=== PATIENT | female | born 1985 | race Caucasian/White ===

== ENCOUNTER 2017-05-15 15:22 | Emergency (ER) | payer SELFPAY ==
--- NOTE | 2017-05-15 17:02 | ER Document Report ---
HPI - HPI Patient complains to provider of: Sore throat, congestion, cough for 3 weeks. Pain Level: 2 Context: Patient is a 31-year-old female presents emergency department complaining of productive cough, congestion, for the past 3 weeks. She also states that her sore throat lasted for about 1 week. She denies any sick contacts. She denies any fevers, chills, body aches. States she did not get a flu vaccine this year. Recently lost her insurance and does not have a primary care provider to follow-up with Past Medical History - Social History Smoking Status: Never Smoker Family History: Reviewed & Not Pertinent Vertical Provider Document - CONSTITUTIONAL Agree With Documented VS: Yes Notes: PHYSICAL EXAM GENERAL: Alert, interacts well. HEENT: NCAT, pale conjunctiva, extraocular movements intact, pupils PERRL. external ear normal, no evidence of external auditory canal tenderness, blood/ drainage, cerumen impaction, TM intact without evidence of effusion, bulging, injection, MMM, Uvula midline. Mild pharyngeal erythema. Airway patent. No evidence of tonsillar enlargement, peritonsillar abscess, retropharyngeal abscess. LUNGS: Clear to auscultation bilaterally, no wheezes, rales, or rhonchi. No respiratory distress. HEART: Regular rate and rhythm. No murmurs, gallops, or rubs. ABDOMEN: Soft, nondistended, nontender. No guarding, rebound, or rigidity.. Bowel sounds present in all 4 quadrants. EXTREMITIES: Moves all 4 extremities spontaneously. No edema, radial and dorsalis pedis pulses 2/4 bilaterally. No cyanosis. NEUROLOGICAL: Alert and oriented x4. Normal speech. PSYCH: Normal affect, normal mood. SKIN: Warm, dry, normal turgor. No rashes or lesions noted. - INFECTION CONTROL TRAVEL OUTSIDE OF THE [place] IN LAST 30 DAYS: No - RESPIRATORY O2 Sat by Pulse Oximetry: 97 Course - Re-evaluation Re-evalutation: 05/15/17 18:26 Presentation is most consistent with a viral upper respiratory infection. Patient is overall well appearance, vitals within normal limits, well-hydrated. Patient denies any headache, neck pain, and has no evidence of meningismus on examination. Lungs are clear bilaterally. Chest x-ray clear without any evidence of acute infiltrate. No evidence of respiratory distress. Rapid strep is negative and does not meet Cent[facility] criteria for clinical antibiotic administration. Based on clinical exam and history, I do not suspect an acute pneumonia, meningitis, strep pharyngitis, or an acute encephalitis. No laboratory or imaging testing is indicated at this time. Will discharge patient with return precautions and followup recommendations. They are in agreement this plan have verbalized understanding return precautions. - Vital Signs Vital signs: Temp Pulse Resp BP Pulse Ox 98.8 F 67 16 107/64 97 05/15/17 15:26 05/15/17 15:26 05/15/17 15:26 05/15/17 15:26 05/15/17 15:26 Discharge - Discharge Clinical Impression: URI (upper respiratory infection) Qualifiers: URI type: unspecified viral URI Qualified Code(s): J06.9 - Acute upper respiratory infection, unspecified Condition: Good Disposition: HOME, SELF-CARE Additional Instructions: Your symptoms are most likely due to a viral infection it should resolve over the next 7-14 days. You should take yypz-byx-[id number] guanfacine per bottle instructions to help thin the mucus. For nasal congestion: I would recommend that you get emum-wfd-wygrtmq oxymetazoline also known is afrin. Use only per bottle instructions and be sure to never use this for more than 3 days if you can develop severe rebound congestion. You may also use tylenol or ibuprofen as needed for aches and thorat discomfort. Please be sure to drink plenty of fluids and get rest. Return to the emergency department he began having difficulty breathing, chest pain, persistent vomiting, or any other symptoms that are concerning to you. Referrals: [facility] [NO LOCAL MD] - Follow up as needed
--- NOTE | 2017-05-15 17:38 | RADIOLOGY REPORT (SQ) ---
EXAM DESCRIPTION: CHEST PA/LAT COMPLETED DATE/TIME: 05/15/2017 5:26 pm REASON FOR STUDY: cough COMPARISON: None. EXAM PARAMETERS: NUMBER OF VIEWS: two views TECHNIQUE: Digital Frontal and Lateral radiographic views of the chest acquired. RADIATION DOSE: NA LIMITATIONS: none FINDINGS: LUNGS AND PLEURA: No opacities, masses or pneumothorax. No pleural effusion. MEDIASTINUM AND HILAR STRUCTURES: No masses or contour abnormalities. HEART AND VASCULAR STRUCTURES: Heart normal size. No evidence for failure. BONES: No acute findings. HARDWARE: Bilateral breast implants. OTHER: No other significant finding. IMPRESSION: NO SIGNIFICANT RADIOGRAPHIC FINDING IN THE CHEST. TECHNICAL DOCUMENTATION: JOB ID: [id number] [employer]- All Rights Reserved
[2017-05-15] MEDS ORDERED: PSEUDOEPHEDRINE HCL 30 MG TABLET PO ONE (18:08)
[2017-05-15] MEDS ORDERED: BENZONATATE 100 MG CAPSULE PO ONE (18:08)
[2017-05-15 18:40] VITALS: BP 101/54
== END 2017-05-15 18:39 | disposition home or self-care (01) ==
LOC: ER 15:22
DX: J06.9 Acute upper respiratory infection, unspecified (principal)
CPT/HCPCS: 71046; 87070; 87077; 87880; 99283

== ENCOUNTER 2017-05-31 08:08 | Emergency (ER) | payer SELFPAY ==
[2017-05-31] MEDS ORDERED: MORPHINE SULFATE 10 MG/ML INJ IV ONE (09:48)
[2017-05-31] MEDS ORDERED: NORMAL SALINE 1000 ML 1,000 ML IV ONE ×2 (09:48→13:05)
--- NOTE | 2017-05-31 10:19 | ER Document Report ---
ED Medical Screen (RME) - General Chief Complaint: Abdominal Pain Stated Complaint: ABDOMINAL PAIN Time Seen by Provider: 05/31/17 09:47 Notes: Patient complains of right lower quadrant pain that radiates to her back. She denies any nausea being . She has had some nausea. No problems with stool. She has had some dysuria. TRAVEL OUTSIDE OF THE [place] IN LAST 30 DAYS: No - Related Data Allergies/Adverse Reactions: No Known Allergies Allergy (Verified 05/31/17 08:09) Past Medical History - Social History Chew tobacco use (# tins/day): No Frequency of alcohol use: Occasional Drug Abuse: None Renal/ Medical History: Denies: Hx Peritoneal Dialysis Past Surgical History: Reports: Hx Breast Surgery - augmentation, Hx Gynecologic Surgery - d/c Physical Exam - Vital signs Vitals: Temp Pulse Resp BP Pulse Ox 98.6 F 92 15 104/57 L 98 05/31/17 08:13 05/31/17 08:13 05/31/17 08:13 05/31/17 08:13 05/31/17 08:13 Course - Vital Signs Vital signs: Temp Pulse Resp BP Pulse Ox 98.6 F 92 15 104/57 L 98 05/31/17 08:13 05/31/17 08:13 05/31/17 08:13 05/31/17 08:13 05/31/17 08:13
[2017-05-31 10:42] LABS: ABSOLUTE BASOPHILS # (AUTO) 0.1 10^3/uL (0.0-0.2); ABSOLUTE EOSINOPHILS # (AUTO) 0.1 10^3/uL (0.0-0.6); ABSOLUTE LYMPHOCYTES (AUTO) 1.3 10^3/uL (0.5-4.7); ABSOLUTE NEUT (AUTO) 16.1 10^3/uL (1.7-8.2); BASOPHILS % (AUTO) 0.3 % (0-2); EOSINOPHILS % (AUTO) 0.4 % (0-6); HEMATOCRIT 42.8 % (36.0-47.0); HEMOGLOBIN 14.4 g/dL (12.0-15.5); LYMPHOCYTES % (AUTO) 6.9 % (13-45); MEAN CORPUSCULAR HEMOGLOBIN 29.7 pg (27.0-33.4); MEAN CORPUSCULAR HGB CONC 33.6 g/dL (32.0-36.0); MEAN CORPUSCULAR VOLUME 88 fl (80-97); MONOCYTES % (AUTO) 5.3 % (3-13); PLATELET COUNT 265 10^3/uL (150-450); RED BLOOD COUNT 4.85 10^6/uL (3.72-5.28); RED CELL DISTRIBUTION WIDTH 13.1 % (11.5-14.0); SEGMENTED NEUTROPHILS % (AUTO) 87.1 % (42-78); TOTAL CELLS COUNTED % (AUTO) 100 %; WHITE BLOOD COUNT 18.5 10^3/uL (4.0-10.5)
[2017-05-31 10:46] LABS: APPEARANCE,URINE SLIGHTLY-CLOUDY; BILIRUBIN,URINE NEGATIVE (NEGATIVE); COLOR,URINE YELLOW; GLUCOSE, URINE NEGATIVE (NEGATIVE); KETONES,URINE 20 mg/dL (NEGATIVE); LEUKOCYTE ESTERASE,URINE LARGE (NEGATIVE); NITRITE,URINE NEGATIVE (NEGATIVE); PROTEIN,URINE NEGATIVE (NEGATIVE); URINE SPECIFIC GRAVITY 1.024
[2017-05-31 11:02] LABS: ALANINE AMINOTRANSFERASE 104 U/L (9-52); ALBUMIN 4.7 g/dL (3.5-5.0); ALKALINE PHOSPHATASE 129 U/L (38-126); ANION GAP 10 (5-19); ASPARTATE AMINO TRANSFERASE 50 U/L (14-36); BILIRUBIN,DIRECT 0.2 mg/dL (0.0-0.4); BILIRUBIN,TOTAL 2.8 mg/dL (0.2-1.3); BLOOD UREA NITROGEN 11 mg/dL (7-20); CALCIUM 10.1 mg/dL (8.4-10.2); CARBON DIOXIDE 28 mmol/L (22-30); CHLORIDE 101 mmol/L (98-107); GLUCOSE 79 mg/dL (75-110); POTASSIUM 4.5 mmol/L (3.6-5.0); SODIUM 139.2 mmol/L (137-145); TOTAL PROTEIN 8.1 g/dL (6.3-8.2)
--- NOTE | 2017-05-31 14:04 | RADIOLOGY REPORT (SQ) ---
EXAM DESCRIPTION: CT ABD/PELVIS WITH IV ONLY COMPLETED DATE/TIME: 05/31/2017 1:38 pm REASON FOR STUDY: RLQ pain COMPARISON: None. TECHNIQUE: CT scan of the abdomen and pelvis performed using helical scanning technique with dynamic intravenous contrast injection. No oral contrast. Images reviewed with lung, soft tissue, and bone windows. Reconstructed coronal and sagittal MPR images reviewed. Delayed images for evaluation of the urinary system also acquired. All images stored on PACS. All CT scanners at this facility use dose modulation, iterative reconstruction, and/or weight based d osing when appropriate to reduce radiation dose to as low as reasonably achievable (ALARA). [facility]: Dose Right [facility]: CareDose [facility]: Dose Right [facility]: Teradose 4D [facility]: Amplify.LA CONTRAST TYPE AND DOSE: contrast/concentration: Isovue 370.00 mg/ml; Total Contrast Delivered: 65.0 ml; Total Saline Delivered: 65.0 ml RENAL FUNCTION: None required. The patient is less than 50 years old. RADIATION DOSE: CT Rad equipment meets quality standard of care and radiation dose reduction techniq ues were employed. CTDIvol: 5.0 - 5.5 mGy. DLP: 519 mGy-cm.. LIMITATIONS: None. FINDINGS: LOWER CHEST: No significant findings. No nodules or infiltrates. LIVER: Normal size. No masses. No dilated ducts. SPLEEN: Normal size. No focal lesions. PANCREAS: No masses. No significant calcifications. No adjacent inflammation or peripancreatic fluid collections. Pancreatic duct not dilated. GALLBLADDER: No identified stones by CT criteria. No inflammatory changes to suggest cholecystitis. ADRENAL GLANDS: No significant masses or asymmetry. RIGHT KIDNEY AND URETER: No solid masses. No significant calcifications. No hydronephrosis or hyd roureter. LEFT KIDNEY AND URETER: No solid masses. No significant calcifications. No hydronephrosis or hydr oureter. AORTA AND VESSELS: No aneurysm. No dissection. Renal arteries, SMA, celiac without stenosis. RETROPERITONEUM: No retroperitoneal adenopathy, hemorrhage or masses. BOWEL AND PERITONEAL CAVITY: No masses or inflammatory changes. No free fluid or peritoneal masses. APPENDIX: The cecum extends into the right pelvis and a normal appendix is not identified. PELVIS: No mass. No free fluid. Normal bladder. A 1.7 cm in diameter cystic structure is identified in the right pelvis presumably representing an ovarian cyst. ABDOMINAL WALL: No masses. No hernias. BONES: No significant or acute findings. OTHER: No other significant finding. IMPRESSION: NO SIGNIFICANT OR ACUTE FINDING IN THE ABDOMEN OR PELVIS ON CT SCAN WITH IV CONTRAST. T he cecum extends into the right pelvis and a normal appendix is not identified. Clinical correlation is recommended. Other findings as noted above TECHNICAL DOCUMENTATION: JOB ID: [id number] Quality ID # [id number]: Final reports with documentation of one or more dose reduction techniques (e.g., Au tomated exposure control, adjustment of the mA and/or kV according to patient size, use of iterative reconstruction technique) 2010 [employer]- All Rights Reserved
[2017-05-31] MEDS ORDERED: CEFTRIAXONE 1 GM/D5W RTU 1 GM/50 ML RTUPB IV ONE (14:39)
--- NOTE | 2017-05-31 14:51 | ER Document Report ---
ED General - General Chief Complaint: Abdominal Pain Stated Complaint: ABDOMINAL PAIN Time Seen by Provider: 05/31/17 09:47 TRAVEL OUTSIDE OF THE [place] IN LAST 30 DAYS: No - HPI Patient complains to provider of: Abdominal pain Notes: Patient coming in for evaluation of abdominal pain superior right lower quadrant. States ongoing for the last 24 hours. Denies any fevers chills states nausea vomiting. Patient states last bowel movement was yesterday. Patient denies any trauma. Upon my evaluation patient is resting comfortably. - Related Data Allergies/Adverse Reactions: No Known Allergies Allergy (Verified 05/31/17 08:09) Past Medical History - Social History Smoking Status: Former Smoker Chew tobacco use (# tins/day): No Frequency of alcohol use: Occasional Drug Abuse: None Family History: Reviewed & Not Pertinent Patient has suicidal ideation: No Patient has homicidal ideation: No Renal/ Medical History: Denies: Hx Peritoneal Dialysis Past Surgical History: Reports: Hx Breast Surgery - augmentation, Hx Gynecologic Surgery - d/c Review of Systems - Review of Systems Constitutional: No symptoms reported EENT: No symptoms reported Cardiovascular: No symptoms reported Respiratory: No symptoms reported Gastrointestinal: Abdominal pain Genitourinary: No symptoms reported Female Genitourinary: No symptoms reported Musculoskeletal: No symptoms reported Skin: No symptoms reported Hematologic/Lymphatic: No symptoms reported Neurological/Psychological: No symptoms reported Physical Exam - Vital signs Vitals: Temp Pulse Resp BP Pulse Ox 98.6 F 92 15 104/57 L 98 05/31/17 08:13 05/31/17 08:13 05/31/17 08:13 05/31/17 08:13 05/31/17 08:13 Interpretation: Normal - General General appearance: Appears well, Alert - HEENT Head: Normocephalic, Atraumatic Eyes: Normal Pupils: PERRL - Respiratory Respiratory status: No respiratory distress Chest status: Nontender Breath sounds: Normal Chest palpation: Normal - Cardiovascular Rhythm: Regular Heart sounds: Normal auscultation Murmur: No - Abdominal Inspection: Normal Distension: No distension Bowel sounds: Normal Tenderness: Tender - Minimal tenderness to suprapubic and right lower quadrant. No: McBurney's point, Bryant's sign, Guarding, Rebound Organomegaly: No organomegaly - Back Back: Normal, Nontender - Extremities General upper extremity: Normal inspection, Nontender, Normal color, Normal ROM , Normal temperature General lower extremity: Normal inspection, Nontender, Normal color, Normal ROM , Normal temperature, Normal weight bearing. No: Annamarie's sign - Neurological Neuro grossly intact: Yes Cognition: Normal Orientation: AAOx4 Lucian Coma Scale Eye Opening: Spontaneous Lucian Coma Scale Verbal: Oriented Morgan Coma Scale Motor: Obeys Commands Lucian Coma Scale Total: 15 Speech: Normal Motor strength normal: LUE, RUE, LLE, RLE Sensory: Normal - Psychological Associated symptoms: Normal affect, Normal mood - Skin Skin Temperature: Warm Skin Moisture: Dry Skin Color: Normal Course - Re-evaluation Re-evalutation: 05/31/17 15:52 Patient with leukocytosis and urinalysis no signs of infection. Although patient is having some right lower quadrant tenderness therefore patient did undergo a CAT scan. Initially Dr. portillo for radiologist read and stated he cannot identify the appendix however I did review the CAT scan with Dr. Ponce states she is able to identify the appendix no signs of acute appendicitis. Patient does have a right ovarian cyst. More likely suprapubic and right lower quadrant pain is due to ovarian cyst and UTI. Will give the patient a dose of Rocephin will discharge patient home with Keflex patient is to return if any complications. - Vital Signs Vital signs: Temp Pulse Resp BP Pulse Ox 98.1 F 92 22 H 114/57 L 100 05/31/17 12:26 05/31/17 08:13 05/31/17 13:01 05/31/17 13:01 05/31/17 13:01 - Laboratory Result Diagrams: 05/31/17 10:20 05/31/17 10:20 Laboratory results interpreted by me: 05/31/17 05/31/17 05/31/17 10:20 10:20 10:20 WBC 18.5 H Seg Neutrophils % 87.1 H Lymphocytes % 6.9 L Absolute Neutrophils 16.1 H Total Bilirubin 2.8 H AST 50 H ALT 104 H Alkaline Phosphatase 129 H Urine Ketones 20 H Urine Urobilinogen 2.0 H Ur Leukocyte Esterase LARGE H Discharge - Discharge Clinical Impression: Urinary tract infection, Right ovarian cyst Instructions: Abdominal Pain ([facility]), Cephalexin ([facility]), Observation for Appendicitis ([facility]), Urinary Tract Infection ([facility]) Additional Instructions: Take medication as prescribed. Return to the ER symptoms worsen. Follow-up with your primary care physician. Prescriptions: Ondansetron [Zofran Odt 4 mg Tablet] 4 mg PO Q4HP PRN #30 tab.rapdis PRN Reason: Cephalexin Monohydrate [Keflex 500 mg Capsule] 500 mg PO QID #28 capsule Tramadol HCl [Ultram 50 mg Tablet] 50 mg PO ASDIR PRN #20 tablet PRN Reason: Forms: Return to Work Referrals: VIRGILIO CASTILLO PA-C [Primary Care Provider] - Follow up in 3-5 days
[2017-05-31] MEDS ORDERED: CEFTRIAXONE SODIUM 1,000 MG in NORMAL SALINE 50 ML IV SCH (16:00)
[2017-05-31 16:21] VITALS: BP 102/61
--- NOTE | 2017-06-01 11:56 | EKG REPORT ---
SEVERITY:- ABNORMAL ECG - SINUS RHYTHM VENTRICULAR ECTOPICS BORDERLINE T ABNORMALITIES, ANTERIOR LEADS : Confirmed by: Amaris Hills 01-Jun-2017 11:55:05
== END 2017-05-31 16:21 | disposition home or self-care (01) ==
LOC: ER 08:08
DX: N39.0 Urinary tract infection, site not specified (principal); N83.201 Unspecified ovarian cyst, right side; R10.31 Right lower quadrant pain
CPT/HCPCS: 93005; 99285; 96361; 96375; 96365; 36415; 85025; 81025; 80053; 81001; 74177; 93010; J2270; J7030

== ENCOUNTER 2017-08-23 20:16 | Emergency (ER) | payer SELFPAY ==
--- NOTE | 2017-08-23 21:36 | ER Document Report ---
ED ENT - General Chief Complaint: Sore Throat Stated Complaint: FEVER/SORE THROAT Time Seen by Provider: 08/23/17 20:34 Mode of Arrival: Ambulatory Information source: Patient TRAVEL OUTSIDE OF THE [place] IN LAST 30 DAYS: No - HPI Patient complains to provider of: Throat problem Notes: Patient is here with complaints of sore throat. She states that she has had a sore throat with postnasal drip and nasal congestion for 4 days. No fever. No difficulty breathing or swallowing. No nausea, vomiting, diarrhea. No chest pain or shortness of breath. No rash. No neck stiffness. She had some intermittent headaches, but denies any severe headache now. No numbness, tingling, weakness. She denies any chronic medical conditions or daily medications. No other complaints at this time. Pain is worse with swallowing, better with rest. - Related Data Allergies/Adverse Reactions: No Known Allergies Allergy (Verified 05/31/17 08:09) Past Medical History - Social History Smoking Status: Unknown if Ever Smoked Chew tobacco use (# tins/day): No Frequency of alcohol use: None Drug Abuse: None Family History: Reviewed & Not Pertinent Patient has suicidal ideation: No Patient has homicidal ideation: No Renal/ Medical History: Denies: Hx Peritoneal Dialysis Past Surgical History: Reports: Hx Breast Surgery - augmentation, Hx Gynecologic Surgery - d/c Review of Systems - Review of Systems -: Yes All other systems reviewed and negative Physical Exam - Vital signs Vitals: Temp Pulse Resp BP Pulse Ox 98.5 F 80 16 115/80 98 08/23/17 20:27 08/23/17 20:27 08/23/17 20:27 08/23/17 20:27 08/23/17 20:27 - Notes Notes: GENERAL: alert, cooperative, nontoxic, no distress. HEAD: normocephalic, atraumatic EYES: conjunctiva pink without discharge, no external redness or swelling. EARS: no external swelling, no external redness, no mastoid redness, swelling, tenderness. Ear canals are clear without swelling or drainage. TMs pearly tucker , no redness, no bulging, normal landmarks, no perforation. NOSE: atraumatic, no external swelling. clear rhinorrhea noted. MOUTH/THROAT: mucous membranes moist and pink, posterior pharynx without erythema, swelling, exudate. No trismus or drooling. NECK: soft, supple, full range of motion, no meningismus. CHEST: no distress, lungs clear and equal throughout. No wheezing, rales, rhonchi. CARDIAC: regular rate and rhythm, no murmur, normal capillary refill, normal pulses. No peripheral edema noted. BACK: full range of motion, no CVA tenderness. EXTREMITIES: full range of motion of all extremities. No redness, no swelling. NEURO: alert and oriented A&O3, no focal deficits, full range of motion of all extremities. PYSCH: appropriate mood, affect. Patient is cooperative. SKIN: pink, warm, dry, no rash. Course - Re-evaluation Re-evalutation: 08/23/17 21:32 Patient is nontoxic appearing with stable vitals. She is here with complaints of sore throat and postnasal drip. Patient has 2 children that are being seen for the same symptoms. All strips are negative. Patient has a benign exam with some postnasal drip present. She is no sign of peritonsillar abscess, epiglottitis, retropharyngeal abscess. The patient's airway is patent. She is in no distress. Patient will be discharged home with instructions to take Tylenol Motrin as needed for pain. Follow-up with her doctor if not better in 5 days, sooner for worsening symptoms, high fever, difficulty breathing or swelling, or for any further concerns. The patient's emergency department workup and current diagnosis were explained to the patient and or family. Follow-up instructions were provided. Medications if prescribed were discussed. Instructions for when to return to the emergency department including specific worrisome symptoms were discussed with the patient and/or family. - Vital Signs Vital signs: Temp Pulse Resp BP Pulse Ox 98.5 F 80 16 115/80 98 08/23/17 20:27 08/23/17 20:27 08/23/17 20:27 08/23/17 20:27 08/23/17 20:27 Discharge - Discharge Clinical Impression: URI (upper respiratory infection), Sore throat (viral) Condition: Stable Disposition: HOME, SELF-CARE Instructions: Sore Throat ([facility]), Upper Respiratory Illness ([facility]), Family Physicians / Practices Additional Instructions: Tylenol Motrin as needed for pain. Drink plenty fluids. Follow-up with your doctor if not better in 5 days, sooner for worsening symptoms, high fever, difficult to breathing or swallowing, severe pain, persistent vomiting, numbness , tingling, weakness, blurred or loss vision, neck stiffness, or for any further concerns. Forms: Smoking Cessation Education Referrals: [facility] [Provider Group] - Follow up as needed
[2017-08-23 22:04] VITALS: BP 115/69
== END 2017-08-23 22:05 | disposition home or self-care (01) ==
LOC: ER 20:16
DX: J02.8 Acute pharyngitis due to other specified organisms (principal); B97.89 Other viral agents as the cause of diseases classified elsewhere; J06.9 Acute upper respiratory infection, unspecified; R09.82 Postnasal drip; R09.81 Nasal congestion; R51 Headache
CPT/HCPCS: 87070; 87880; 99283

== ENCOUNTER 2017-08-28 03:06 | Emergency (ER) | payer SELFPAY ==
[2017-08-28 03:11] VITALS: BP 118/69
[2017-08-28] MEDS ORDERED: IBUPROFEN 600 MG TABLET PO ONE (03:43)
--- NOTE | 2017-08-28 03:43 | ER Document Report ---
HPI - HPI Patient complains to provider of: sore throat and cough Pain Level: 4 Context: Patient is a 32-year-old female who presents emergency department the chief complaint of sore throat, nonproductive cough for the past 2 weeks. Patient states that she was seen here previously told it was a viral infection that she was negative for strep. Patient states that she has been doing DayQuil and Tylenol at home which helps with the pain but still present. She denies any fevers or chills, shortness of breath, chest pain. Past Medical History - Social History Smoking Status: Smoker,Current Status Unk Family History: Reviewed & Not Pertinent Renal/ Medical History: Denies: Hx Peritoneal Dialysis Past Surgical History: Reports: Hx Breast Surgery - augmentation, Hx Gynecologic Surgery - d/c Vertical Provider Document - CONSTITUTIONAL Agree With Documented VS: Yes Notes: PHYSICAL EXAM GENERAL: Alert, interacts well. HEENT: NCAT, pale conjunctiva, extraocular movements intact, pupils PERRL. external ear normal, no evidence of external auditory canal tenderness, blood/ drainage, cerumen impaction, TM intact without evidence of effusion, bulging, injection, MMM, Uvula midline. Airway patent. No evidence of tonsillar enlargement, peritonsillar abscess, retropharyngeal abscess. No evidence of pharyngeal erythema, tonsillar exudate. NECK: Full range of motion. Supple. Trachea midline. LUNGS: Clear to auscultation bilaterally, no wheezes, rales, or rhonchi. No respiratory distress. HEART: Regular rate and rhythm. No murmurs, gallops, or rubs. NEUROLOGICAL: Alert and oriented x4. Normal speech. PSYCH: Normal affect, normal mood. SKIN: Warm, dry, normal turgor. No rashes or lesions noted. - INFECTION CONTROL TRAVEL OUTSIDE OF THE [place] IN LAST 30 DAYS: No Course - Re-evaluation Re-evalutation: 08/28/17 03:41 Patient is a 32-year-old female is hemodynamically stable, no acute distress and afebrile. Presentation is consistent with postnasal drip related to allergic rhinitis. Discussed with patient to utilize [id number]-[id number] antihistamines with decongestants. Discussed with her she can continue to take Motrin and Tylenol as needed for pain. Clinical suspicion for peritonsillar retropharyngeal abscess. Airway is patent. Stable for discharge home - Vital Signs Vital signs: Temp Pulse Resp BP Pulse Ox 97.9 F 59 L 14 118/69 99 08/28/17 03:10 08/28/17 03:10 08/28/17 03:10 08/28/17 03:10 08/28/17 03:10 Discharge - Discharge Clinical Impression: Post-nasal drip Condition: Good Disposition: HOME, SELF-CARE Additional Instructions: Your presentation today is consistent with postnasal drip which can either be viral or allergy related. You can take hjcv-mmu-sihmcac Claritin-D/Kym-D or Zyrtec-D to help with the symptoms. You can continue to utilize Tylenol and Motrin as needed for pain. Please follow-up with your primary care doctor. Prescriptions: Loratadine/Pseudoephedrine Sul [Claritin-D 24 Hour Tablet] 1 tab PO DAILY #30 tab.sr.24h Referrals: VIRGILIO CASTILLO PA-C [Primary Care Provider] - Follow up in 3-5 days
== END 2017-08-28 04:24 | disposition home or self-care (01) ==
LOC: ER 03:06
DX: R09.82 Postnasal drip (principal); J02.9 Acute pharyngitis, unspecified; R05 Cough
CPT/HCPCS: 99282

== ENCOUNTER 2018-05-29 08:51 | Emergency (ER) | payer BC ==
[2018-05-29 09:06] VITALS: BP 119/70
--- NOTE | 2018-05-29 09:36 | ER Document Report ---
HPI - HPI Time Seen by Provider: 05/29/18 09:35 Pain Level: 1 Notes: Patient is a 32-year-old female who presents with complaints of left breast pain. She states she had silicone implants put in in 2011 and has not had them checked since 2012. Patient reports pain underneath the left breast that comes and goes, denies any redness or drainage. - REPRODUCTIVE Reproductive: DENIES: : Past Medical History - General Information source: Patient - Social History Smoking Status: Never Smoker Frequency of alcohol use: Occasional Drug Abuse: None Family History: Reviewed & Not Pertinent - Medical History Medical History: Negative Renal/ Medical History: Denies: Hx Peritoneal Dialysis Past Surgical History: Reports: Hx Breast Surgery - augmentation, Hx Gynecologic Surgery - d/c - Immunizations Immunizations up to date: Yes Vertical Provider Document - CONSTITUTIONAL Notes: PHYSICAL EXAMINATION: GENERAL: Well-appearing, well-nourished and in no acute distress. HEAD: Atraumatic, normocephalic. EYES: Pupils equal round extraocular movements intact, conjunctiva are normal. ENT: Nares patent NECK: Normal range of motion LUNGS: No respiratory distress Musculoskeletal: Normal range of motion NEUROLOGICAL: Normal speech, normal gait. PSYCH: Normal mood, normal affect. SKIN: Warm, Dry, normal turgor, no rashes or lesions noted. - INFECTION CONTROL TRAVEL OUTSIDE OF THE [place] IN LAST 30 DAYS: No Course - Re-evaluation Re-evalutation: Normal exam, will send patient to follow-up with plastic surgeon for evaluation of her breast implants. - Vital Signs Vital signs: Temp Pulse Resp BP Pulse Ox 98.9 F 72 16 119/70 100 05/29/18 09:05 05/29/18 09:05 05/29/18 09:05 05/29/18 09:05 05/29/18 09:05 Discharge - Discharge Clinical Impression: Breast pain Condition: Stable Disposition: HOME, SELF-CARE Additional Instructions: There is not appear to be anything wrong with your breast implants on external examination. I would recommend you following up with a plastic surgeon for them to do a complete evaluation. In the meanwhile please take ibuprofen or Tylenol for any pain. Follow-up with Dr. Baird is information is on the paperwork. Referrals: BRIDGETTE BAIRD MD [ACTIVE STAFF] - Follow up as needed
== END 2018-05-29 09:50 | disposition home or self-care (01) ==
LOC: ER 08:51
DX: N64.4 Mastodynia (principal)
CPT/HCPCS: 99283

== ENCOUNTER 2018-06-04 22:39 | Emergency (ER) | payer BC ==
[2018-06-04 23:06] VITALS: BP 110/66
[2018-06-05] MEDS ORDERED: ONDANSETRON HCL INJ/PF 4 MG/2 ML SDV IV ONE (01:21)
--- NOTE | 2018-06-05 01:23 | ER Document Report ---
ED Medical Screen (RME) - General Chief Complaint: Nausea/Vomiting Stated Complaint: VOMITING,WEAKNESS Time Seen by Provider: 06/05/18 01:20 Primary Care Provider: VIRGILIO CASTILLO PA-C [Primary Care Provider] - Follow up as needed Mode of Arrival: Ambulatory Information source: Patient Notes: 32-year-old female to ED for complaint of nausea vomiting diarrhea abdominal pain since about 7 PM tonight. She states she has had numerous emesis as well as numerous stools. She states she just has generalized abdominal pain. She is alert oriented respirations regular and unlabored speaking in full sentences. She states she took some ODT Zofran at home and it did not help her at all. She denies any fever. Patient has a history of D&C breast augmentation heart murmur and anxiety. She is a former smoker drinks about once a month and lives with her family. I have greeted and performed a rapid initial assessment of this patient. A comprehensive ED assessment and evaluation of the patient, analysis of test results and completion of medical decision making process will be conducted by an additional ED providers. TRAVEL OUTSIDE OF THE [place] IN LAST 30 DAYS: No - Related Data Allergies/Adverse Reactions: No Known Allergies Allergy (Verified 05/29/18 08:55) Past Medical History Renal/ Medical History: Denies: Hx Peritoneal Dialysis Past Surgical History: Reports: Hx Breast Surgery - augmentation, Hx Gynecologic Surgery - d/c - Immunizations Immunizations up to date: Yes Physical Exam - Vital signs Vitals: Temp Pulse Resp BP Pulse Ox 98.1 F 96 18 110/66 100 06/04/18 23:04 06/04/18 23:04 06/04/18 23:04 06/04/18 23:04 06/04/18 23:04 Course - Vital Signs Vital signs: Temp Pulse Resp BP Pulse Ox 98.1 F 96 18 110/66 100 06/04/18 23:04 06/04/18 23:04 06/04/18 23:04 06/04/18 23:04 06/04/18 23:04 Doctor's Discharge - Discharge Referrals: VIRGILIO CASTILLO PA-C [Primary Care Provider] - Follow up as needed
--- NOTE | 2018-06-05 07:36 | EKG REPORT ---
SEVERITY:- ABNORMAL ECG - SINUS RHYTHM LEFT ATRIAL ABNORMALITY NONSPECIFIC ST-T CHANGES- INFERIOR LEADS : Confirmed by: Ankit Stephens MD 05-Jun-2018 07:35:55
== END 2018-06-05 01:50 | disposition left against medical advice (07) ==
LOC: ER 22:39
DX: R11.2 Nausea with vomiting, unspecified (principal); R53.1 Weakness; R10.9 Unspecified abdominal pain
CPT/HCPCS: 93005; 93010; 99281

== ENCOUNTER 2018-08-16 10:59 | Emergency (ER) | payer BC ==
--- NOTE | 2018-08-16 11:21 | ER Document Report ---
ED Medical Screen (RME) - General Chief Complaint: Post Surgical Pain Stated Complaint: POST SURGICAL ISSUE Time Seen by Provider: 08/16/18 11:18 Primary Care Provider: VIRGILIO CASTILLO PA-C [Primary Care Provider] - Follow up as needed TRAVEL OUTSIDE OF THE [place] IN LAST 30 DAYS: No - HPI Notes: 08/16/18 11:19 Patient is a 33-year-old female with no significant past medical history who presents to the emergency department complaining of epigastric abdominal pain that began 2 days ago. Patient states that she also has associated sensation of bloating. She is able to eat and drink, but does have a decreased p.o. intake. She is urinating normally and having normal bowel movements. Patient states that she did have her breast implants removed 3 days ago. Patient states that she is not having any discomfort from the areas over the implants were removed. Last menstrual period was about 2.5 weeks ago. Denies BELLO, fever, neck pain, URI, CP, SOB, diarrhea, or rash. I have treated and performed a rapid initial assessment of this patient. A comprehensive ED assessment and evaluation of the patient, analysis of test results and completion of medical decision making process will be conducted by additional ED providers. PHYSICAL EXAMINATION: GENERAL: Well-appearing, well-nourished and in no acute distress. A&Ox4. Answers questions appropriately. LUNGS: Breath sounds clear to auscultation bilaterally and equal. No wheezes rales or rhonchi. HEART: Regular rate and rhythm without murmurs, rubs, gallops. ABDOMEN: Soft, nondistended abdomen. No guarding, no rebound. Normal bowel sounds present. No CVA tenderness bilaterally. + mild epigastric tenderness (cannot elicit thorough abd exam w/o table, however). Extremities: No cyanosis, clubbing, or edema b/l. NEUROLOGICAL: Normal speech, normal gait. PSYCH: Normal mood, normal affect. - Related Data Allergies/Adverse Reactions: No Known Allergies Allergy (Verified 05/29/18 08:55) Past Medical History Renal/ Medical History: Denies: Hx Peritoneal Dialysis Past Surgical History: Reports: Hx Breast Surgery - augmentation, Hx Gynecologic Surgery - d/c - Immunizations Immunizations up to date: Yes Doctor's Discharge - Discharge Referrals: VIRGILIO CASTILLO PA-C [Primary Care Provider] - Follow up as needed
[2018-08-16 11:42] LABS: ABSOLUTE EOSINOPHILS # (AUTO) 0.3 10^3/uL (0.0-0.6); ABSOLUTE LYMPHOCYTES (AUTO) 1.6 10^3/uL (0.5-4.7); ABSOLUTE MONOCYTES (AUTO) 0.4 10^3/uL (0.1-1.4); ABSOLUTE NEUT (AUTO) 3.2 10^3/uL (1.7-8.2); BASOPHILS % (AUTO) 0.5 % (0-2); EOSINOPHILS % (AUTO) 4.7 % (0-6); HEMATOCRIT 39.8 % (36.0-47.0); HEMOGLOBIN 13.7 g/dL (12.0-15.5); LYMPHOCYTES % (AUTO) 29.1 % (13-45); MEAN CORPUSCULAR HEMOGLOBIN 30.3 pg (27.0-33.4); MEAN CORPUSCULAR HGB CONC 34.3 g/dL (32.0-36.0); MEAN CORPUSCULAR VOLUME 88 fl (80-97); PLATELET COUNT 217 10^3/uL (150-450); RED BLOOD COUNT 4.52 10^6/uL (3.72-5.28); RED CELL DISTRIBUTION WIDTH 12.8 % (11.5-14.0); SEGMENTED NEUTROPHILS % (AUTO) 58.7 % (42-78); TOTAL CELLS COUNTED % (AUTO) 100 %; WHITE BLOOD COUNT 5.5 10^3/uL (4.0-10.5)
[2018-08-16 12:07] LABS: ALANINE AMINOTRANSFERASE 42 U/L (9-52); ALBUMIN 4.2 g/dL (3.5-5.0); ALKALINE PHOSPHATASE 76 U/L (38-126); ANION GAP 9 (5-19); ASPARTATE AMINO TRANSFERASE 30 U/L (14-36); BILIRUBIN,DIRECT 0.2 mg/dL (0.0-0.4); BILIRUBIN,TOTAL 0.7 mg/dL (0.2-1.3); BLOOD UREA NITROGEN 9 mg/dL (7-20); CALCIUM 9.5 mg/dL (8.4-10.2); CARBON DIOXIDE 28 mmol/L (22-30); CHLORIDE 102 mmol/L (98-107); GLUCOSE 74 mg/dL (75-110); LIPASE 73.1 U/L (23-300); POTASSIUM 4.1 mmol/L (3.6-5.0); SODIUM 138.6 mmol/L (137-145); TOTAL PROTEIN 7.5 g/dL (6.3-8.2)
--- NOTE | 2018-08-16 12:43 | RADIOLOGY REPORT (SQ) ---
EXAM DESCRIPTION: ACUTE ABDOMEN SERIES COMPLETED DATE/TIME: 08/16/2018 12:22 pm REASON FOR STUDY: epigastric pain, breast implants removed 08/13 COMPARISON: None. NUMBER OF VIEWS: Three views. TECHNIQUE: Frontal chest, supine abdomen and upright/decubitus abdomen radiographic images acquired. LIMITATIONS: None. FINDINGS: CHEST: Lungs clear of infiltrates. FREE AIR: None. No abnormal gas collections. BOWEL GAS PATTERN: Nonobstructive pattern. No dilated loops or air fluid levels. CALCIFICATIONS: No suspicious calcifications. HARDWARE: None in the abdomen. SOFT TISSUES: No gross mass or suggestion of organomegaly. BONES: No acute fracture. No worrisome bone lesions. OTHER: No other significant finding. IMPRESSION: NO RADIOGRAPHIC EVIDENCE FOR ACUTE ABDOMINAL DISEASE. TECHNICAL DOCUMENTATION: JOB ID: [id number] [employer]- All Rights Reserved Reading location - IP/workstation name: [email or web address]
[2018-08-16 13:07] LABS: APPEARANCE,URINE SLIGHTLY-CLOUDY; BILIRUBIN,URINE NEGATIVE (NEGATIVE); COLOR,URINE STRAW; GLUCOSE, URINE NEGATIVE (NEGATIVE); KETONES,URINE NEGATIVE (NEGATIVE); LEUKOCYTE ESTERASE,URINE TRACE (NEGATIVE); NITRITE,URINE NEGATIVE (NEGATIVE); PROTEIN,URINE NEGATIVE (NEGATIVE); URINE SPECIFIC GRAVITY 1.009; UROBILINOGEN,URINE NEGATIVE mg/dL (<2.0)
[2018-08-16 13:46] VITALS: BP 132/82
--- NOTE | 2018-08-16 18:37 | ER Document Report ---
Entered by TIFFANIE LAWSON SCRIBE 08/16/18 1333 Acting as scribe for:VINCENT THOMAS DO ED GI/ - General Chief Complaint: Post Surgical Pain Stated Complaint: POST SURGICAL ISSUE Time Seen by Provider: 08/16/18 11:18 Primary Care Provider: VIRGILIO CASTILLO PA-C [Primary Care Provider] - Follow up as needed Mode of Arrival: Ambulatory Information source: Patient Notes: 33-year-old female who presents to the emergency department today with com plaints of upper abdominal pain. Patient states she had her breast implants removed recently due to the left one "burning" and the right one becoming encapsulated. Patient states she developed this pain after starting clindamycin that she was sent home on postoperatively. Patient states she called her surgeon who stated that this was not common and she should come be evaluated in the emergency department. Denies any fevers, nausea, vomiting, diarrhea, discharge from the surgery site. TRAVEL OUTSIDE OF THE [place] IN LAST 30 DAYS: No - Related Data Allergies/Adverse Reactions: No Known Allergies Allergy (Verified 05/29/18 08:55) Past Medical History - General Information source: Patient - Social History Smoking Status: Never Smoker Chew tobacco use (# tins/day): No Frequency of alcohol use: None Drug Abuse: None Lives with: Family Family History: Reviewed & Not Pertinent Patient has suicidal ideation: No Patient has homicidal ideation: No Past Surgical History: Reports: Hx Breast Surgery - augmentation, implants removed, Hx Gynecologic Surgery - d/c - Immunizations Immunizations up to date: Yes Review of Systems - Review of Systems Constitutional: No symptoms reported EENT: No symptoms reported Cardiovascular: No symptoms reported Respiratory: No symptoms reported Gastrointestinal: See HPI, Abdominal pain Genitourinary: No symptoms reported Female Genitourinary: No symptoms reported Musculoskeletal: No symptoms reported Skin: No symptoms reported Hematologic/Lymphatic: No symptoms reported Neurological/Psychological: No symptoms reported -: Yes All other systems reviewed and negative Physical Exam - Vital signs Vitals: Temp Pulse Resp BP Pulse Ox 98.3 F 64 16 132/82 H 99 08/16/18 13:44 08/16/18 13:44 08/16/18 13:44 08/16/18 13:44 08/16/18 13:44 - Notes Notes: PHYSICAL EXAM GENERAL: Alert, interacts well. No acute distress. HEAD: Normocephalic, atraumatic. EYES: Pupils equal, round, and reactive to light. Extraocular movements intact. ENT: Oral mucosa moist, tongue midline. NECK: Full range of motion. Supple. Trachea midline. LUNGS: No respiratory distress. ABDOMEN: Soft, epigastric abdominal tenderness with palpation. Non-distended. Bowel sounds present and hyperactive in all 4 quadrants. No guarding, rigidity, or rebound. EXTREMITIES: Moves all 4 extremities spontaneously. No edema, radial and dorsalis pedis pulses 2/4 bilaterally. No cyanosis. NEUROLOGICAL: Alert and oriented x3. Normal speech. PSYCH: Normal affect, normal mood. SKIN: Warm, dry, normal turgor. Post surgical dressing held on with janie wrap across chest. White gauze underneath janie wrap is not saturated, nor is janie wrap itself. Course - Re-evaluation Re-evalutation: 08/16/18 13:37 CBC unremarkable, CMP unremarkable, urinalysis shows small blood and trace leukocyte esterase, patient has no urinary symptoms, hCG is negative. Acute abdominal series is unremarkable. I agree with the patient suspicion that her epigastric abdominal pain is being caused by irritation from clindamycin. Patient is recommended to take the clindamycin with food, take Zantac twice a day and follow-up with her surgeon in 2-3 days if she is still having epigastric discomfort to see if she can be switched to a different antibiotic. - Vital Signs Vital signs: Temp Pulse Resp BP Pulse Ox 98.3 F 64 16 132/82 H 99 08/16/18 13:44 08/16/18 13:44 08/16/18 13:44 08/16/18 13:44 08/16/18 13:44 - Laboratory Result Diagrams: 08/16/18 11:20 08/16/18 11:20 Laboratory results interpreted by me: 08/16/18 08/16/18 11:20 11:20 Glucose 74 L Urine Blood SMALL H Ur Leukocyte Esterase TRACE H Discharge - Discharge Clinical Impression: Epigastric abdominal pain Condition: Stable Disposition: HOME, SELF-CARE Additional Instructions: Please take your Clindamycin on a full stomach. Please take Zantac 75 mg twice a day until you done with your clindamycin. You may also use the generic equivalent ranitidine. It is available [id number]. Return for fevers, vomiting or any new or concerning symptoms. Prescriptions: Ranitidine HCl [Zantac 75 mg Tablet] 75 mg PO BID #30 tablet Referrals: VIRGILIO CASTILLO PA-C [Primary Care Provider] - Follow up as needed I personally performed the services described in the documentation, reviewed and edited the documentation which was dictated to the scribe in my presence, and it accurately records my words and actions.
== END 2018-08-16 13:44 | disposition home or self-care (01) ==
LOC: ER 10:59
DX: R10.13 Epigastric pain (principal); G89.18 Other acute postprocedural pain; R10.10 Upper abdominal pain, unspecified; Z98.890 Other specified postprocedural states
CPT/HCPCS: 36415; 74022; 80053; 81001; 81025; 83690; 85025; 87086; 99283

== ENCOUNTER → 2019-03-04 | Outpatient (CLI) | payer BC ==
[2019-03-04 18:30] LABS: BACTERIA (WET MOUNT) 4+ BACTERIA SEEN; EPITHELIALS (WET MOUNT) 4+ EPITHELIALS SEEN; T.VAGINALIS (WET MOUNT) NO TRICHOMONAS SEEN; WBCS (WET MOUNT) 2+ WBCS SEEN; YEAST (WET MOUNT) NO YEAST SEEN
[2019-03-04 19:57] LABS: CHLAM PCR NOT DETECTED (NOT DETECT)
== END ==
LOC: LAB 18:22
PROVIDERS: ATTEND Nurse Practitioner Acute Care
DX: N89.8 Other specified noninflammatory disorders of vagina (principal); R30.0 Dysuria
CPT/HCPCS: 87086; 87210; 87491; 87591

== ENCOUNTER 2019-05-25 21:44 | Emergency (ER) | payer BC ==
--- NOTE | 2019-05-25 22:15 | ER Document Report ---
ED Medical Screen (RME) - General Chief Complaint: Sore Throat Stated Complaint: SORE THROAT Time Seen by Provider: 05/25/19 22:11 Primary Care Provider: JUSTO ARENAS NP [Primary Care Provider] - Follow up as needed Notes: HPI: 33-year-old female presenting to the emergency department complaining of sore throat for 1 to 2 weeks with painful swallowing. No voice change. No definite fever. Has taken no medications for symptoms. Denies nasal congestion cough or cold symptoms I have greeted and performed a rapid initial assessment of this patient. A comprehensive ED assessment and evaluation of the patient, analysis of test results and completion of the medical decision making process will be conducted by additional ED providers PHYSICAL EXAMINATION: GENERAL: Well-appearing, well-nourished and in no acute distress. HEAD: Atraumatic, normocephalic. EYES: sclera anicteric, conjunctiva are normal. ENT: Moist mucous membranes. No significant pharyngeal erythema, no soft palate swelling NECK: Normal range of motion, no significant cervical adenopathy LUNGS: Normal work of breathing HEART: 2+ radial pulses bilaterally, regular rate and rhythm EXTREMITIES: no pitting or edema. No cyanosis. NEUROLOGICAL: Moves all extremities spontaneously and on command. PSYCH: Normal mood, normal affect. SKIN: Warm, Dry, normal turgor, no rashes or lesions noted. TRAVEL OUTSIDE OF THE [place] IN LAST 30 DAYS: No - Related Data Allergies/Adverse Reactions: cephalexin [From Keflex] Adverse Reaction (Verified 05/25/19 22:12) Home Medications: lexapro 10 mg qday Past Medical History Renal/ Medical History: Denies: Hx Peritoneal Dialysis Past Surgical History: Reports: Hx Breast Surgery - augmentation, implants removed, Hx Gynecologic Surgery - d/c - Immunizations Immunizations up to date: Yes Physical Exam - Vital signs Vitals: Temp Pulse Resp BP Pulse Ox 98.5 F 76 16 121/67 97 05/25/19 22:04 05/25/19 22:04 05/25/19 22:04 05/25/19 22:04 05/25/19 22:04 Course - Vital Signs Vital signs: Temp Pulse Resp BP Pulse Ox 98.5 F 76 16 121/67 97 05/25/19 22:04 05/25/19 22:04 05/25/19 22:04 05/25/19 22:04 05/25/19 22:04 Doctor's Discharge - Discharge Referrals: JUSTO ARENAS HOMOEOPATH [Primary Care Provider] - Follow up as needed
[2019-05-25] MEDS ORDERED: DEXAMETHASONE 4 MG TABLET PO ONE (22:38)
[2019-05-25] MEDS ORDERED: KETOROLAC TROMETHAMINE 60 MG/2 ML SDV IM ONE (22:38)
--- NOTE | 2019-05-25 22:41 | ER Document Report ---
ED General - General Chief Complaint: Sore Throat Stated Complaint: SORE THROAT Time Seen by Provider: 05/25/19 22:11 Primary Care Provider: JUSTO ARENAS NP [Primary Care Provider] - Follow up as needed Notes: Please see prior RME note for history and physical. Patient's rapid strep is negative. Will give Decadron and Toradol in the emergency department this is likely a viral etiology will place patient on Magic mouthwash, follow-up PCP TRAVEL OUTSIDE OF THE [place] IN LAST 30 DAYS: No - Related Data Allergies/Adverse Reactions: cephalexin [From Keflex] Adverse Reaction (Verified 05/25/19 22:12) Home Medications: lexapro 10 mg qday Past Medical History - Social History Smoking Status: Never Smoker Family History: Reviewed & Not Pertinent Patient has suicidal ideation: No Patient has homicidal ideation: No Renal/ Medical History: Denies: Hx Peritoneal Dialysis Past Surgical History: Reports: Hx Breast Surgery - augmentation, implants removed, Hx Gynecologic Surgery - d/c - Immunizations Immunizations up to date: Yes Physical Exam - Vital signs Vitals: Temp Pulse Resp BP Pulse Ox 98.5 F 76 16 121/67 97 05/25/19 22:04 05/25/19 22:04 05/25/19 22:04 05/25/19 22:04 05/25/19 22:04 Course - Vital Signs Vital signs: Temp Pulse Resp BP Pulse Ox 98.5 F 76 16 121/67 97 05/25/19 22:04 05/25/19 22:04 05/25/19 22:04 05/25/19 22:04 05/25/19 22:04 Discharge - Discharge Clinical Impression: Viral pharyngitis Condition: Stable Disposition: HOME, SELF-CARE Additional Instructions: 1. medicines as prescribed 2. take Motrin/Tylenol consistently for pain and fever 3. hydrate well at home with fluids/juices 4. recheck with your PCP for further evaluation and treatment, call for appt. 5. return to the ED for any difficulty swallowing or worsening condition 6. warm salt water gargles for throat discomfort 3 times daily Prescriptions: Nystatin/Dexameth/Diphen [Magic Mouthwash ([facility] Formula) Susp] 5 ml PO QID #120 ml Referrals: JUSTO ARENAS NP [Primary Care Provider] - Follow up as needed
[2019-05-25 22:50] VITALS: BP 122/78
== END 2019-05-25 23:55 | disposition home or self-care (01) ==
LOC: ER 21:44
DX: J02.9 Acute pharyngitis, unspecified (principal); Z88.3 Allergy status to other anti-infective agents
CPT/HCPCS: 99283; 96372; 87070; 87880; J8540; J1885

== ENCOUNTER 2019-06-23 09:35 | Emergency (ER) | payer BC ==
[2019-06-23] MEDS ORDERED: ONDANSETRON HCL INJ/PF 4 MG/2 ML SDV IV ONE (09:44)
[2019-06-23] MEDS ORDERED: NORMAL SALINE 1000 ML 1,000 ML IV ONE (09:44)
--- NOTE | 2019-06-23 09:50 | ER Document Report ---
ED General - General Chief Complaint: Chest Pain Stated Complaint: CHEST PAIN Time Seen by Provider: 06/23/19 09:40 Primary Care Provider: JUSTO ARENAS, INDUSTRIAL HEALTH AND SAFETY PROFESSOR [NURSE PRACTITIONER] - Follow up as needed TRAVEL OUTSIDE OF THE [place] IN LAST 30 DAYS: No - HPI Notes: Patient is a 34-year-old female no significant past medical history aside from anxiety who presents complaining of having dull chest pain about 3 to 4 hours ago that led to chest tightness. Patient states that the dull pain has since resolved. Patient has had associated nausea and she did vomit once here in the ED. She is otherwise urinating normally and having normal bowel movements. No vaginal bleeding, odor, or discharge. She denies . No smoking or drug/alcohol involvement. Denies any prolonged immobilization, distance travel, recent surgery/trauma, personal cancer history, hormone use, smoking, or previous DVT/PE. Denies any headache, fever, neck pain, URI, sore throat, palpitations, syncope, cough, shortness of breath, wheeze, dyspnea, abdominal pain, diarrhea, urinary retention, dysuria, hematuria, back pain, or rash. - Related Data Allergies/Adverse Reactions: cephalexin [From Keflex] Adverse Reaction (Verified 06/23/19 10:19) Past Medical History - Social History Smoking Status: Never Smoker Family History: Reviewed & Not Pertinent Renal/ Medical History: Denies: Hx Peritoneal Dialysis Past Surgical History: Reports: Hx Breast Surgery - augmentation, implants removed, Hx Gynecologic Surgery - d/c - Immunizations Immunizations up to date: Yes Review of Systems - Review of Systems -: Yes All other systems reviewed and negative Physical Exam - Vital signs Vitals: Pulse Ox 97 06/23/19 09:49 - Notes Notes: PHYSICAL EXAMINATION: GENERAL: Well-appearing, well-nourished and in no acute distress. HEAD: Atraumatic, normocephalic. EYES: Pupils equal round and reactive to light, extraocular movements intact, sclera anicteric, conjunctiva are normal. ENT: Nares patent and without discharge. oropharynx clear without exudates. No tonsilar hypertrophy or erythema. Moist mucous membranes. NECK: Normal range of motion, supple without lymphadenopathy LUNGS: Breath sounds clear to auscultation bilaterally and equal. No wheezes rales or rhonchi. HEART: Regular rate and rhythm without murmurs, rubs, gallops. ABDOMEN: Soft, nontender, nondistended abdomen. No guarding, no rebound. Normal bowel sounds present. No CVA tenderness bilaterally. Musculoskeletal: FROM to passive/active. Strength 5+/5. Annamarie neg. No asymmetry to LE's. Extremities: No cyanosis, clubbing, or edema b/l. Peripheral pulses 2+. Capillary refill less than 3 seconds. NEUROLOGICAL: Normal speech, normal gait. PSYCH: Normal mood, normal affect. SKIN: Warm, Dry, normal turgor, no rashes or lesions noted. Course - Re-evaluation Re-evalutation: 06/23/19 14:20 Patient is an afebrile, well-hydrated 34-year-old female who presents to the ED with resolved atypical chest pain (possible anxiety), n/v. Vitals are acceptable without any significant tachycardia, tachypnea, or hypoxia. PE is otherwise unremarkable. Patient is nontoxic-appearing and is tolerating p.o. without any difficulties. Pt is currently asymptomatic. CBC, CMP, Lipase, EKG/cardiac enzymes 2, chest x-ray are all unremarkable for any acute pathology. Patient has a heart score of 1, Wells score of 0, and is PERC negative. Patient does not have any chest pain, dyspnea, or shortness of breath. Patient's presentation and symptomatology creates low suspicion for ACS, PE, pneumothorax, pericarditis, dissection, respiratory compromise, severe dehydration, sepsis, meningitis, or other systemic emergent condition at this time. Patient is aware that this condition can change from initial presentation and she needs to monitor symptoms closely and seek medical attention for any acute changes. Pt is feeling better and would like to go home. Recommend conservative measures for symptoms. Recheck with your PCM in 2-3 days. Return to the ED with any worsening/concerning symptoms otherwise as reviewed in discharge. Patient is in agreement. - Vital Signs Vital signs: Temp Pulse Resp BP Pulse Ox 98.4 F 15 101/71 98 06/23/19 10:05 06/23/19 11:01 06/23/19 11:01 06/23/19 11:01 - Laboratory Result Diagrams: 06/23/19 09:51 06/23/19 09:51 Laboratory results interpreted by me: 06/23/19 06/23/19 09:51 09:51 Lymph % (Auto) 12.9 L Seg Neutrophils % 80.6 H Creatinine 0.48 L AST 41 H ALT 37 H Total Protein 8.3 H Discharge - Discharge Clinical Impression: Atypical chest pain Nausea and vomiting Qualifiers: Vomiting type: unspecified Vomiting Intractability: non-intractable Qualified Code(s): R11.2 - Nausea with vomiting, unspecified Condition: Stable Disposition: HOME, SELF-CARE Instructions: Chest Pain of Unclear Cause ([facility]), Vomiting ([facility]), Antinausea Medication ([facility]) Additional Instructions: Maintain adequate fluid and food intake Ravia diet (B.R.A.T.) Bananas, rice, apples, toast, etc Zofran as needed tylenol if needed Monitor for any worsening symptoms Make sure you are staying hydrated enough to urinate and have normal BM's Recheck with your PCM in 2-3 days Consider consult with Gastroenterology for ongoing/worsening symptoms Return to the ED with any worsening symptoms and/or development of fever, headache, chest pain, palpitations, syncope, shortness of breath, trouble breathing, abdominal pain, n/v/d, blood in stool/urine, weakness, or other worsening symptoms that are concerning to you. Prescriptions: Ondansetron [Zofran Odt 4 mg Tablet] 1 tab PO Q4H PRN #15 tab.rapdis PRN Reason: For Nausea/Vomiting Referrals: JUSTO ARENAS, INDUSTRIAL HEALTH AND SAFETY PROFESSOR [NURSE PRACTITIONER] - Follow up as needed
[2019-06-23 09:59] LABS: ABSOLUTE BASOPHILS # (AUTO) 0.1 10^3/uL (0.0-0.2); ABSOLUTE EOSINOPHILS # (AUTO) 0.1 10^3/uL (0.0-0.6); ABSOLUTE LYMPHOCYTES (AUTO) 1.1 10^3/uL (0.5-4.7); ABSOLUTE MONOCYTES (AUTO) 0.4 10^3/uL (0.1-1.4); ABSOLUTE NEUT (AUTO) 6.8 10^3/uL (1.7-8.2); BASOPHILS % (AUTO) 0.6 % (0-2); EOSINOPHILS % (AUTO) 0.9 % (0-6); HEMATOCRIT 44.3 % (36.0-47.0); HEMOGLOBIN 15.2 g/dL (12.0-15.5); LYMPHOCYTES % (AUTO) 12.9 % (13-45); MEAN CORPUSCULAR HEMOGLOBIN 30.3 pg (27.0-33.4); MEAN CORPUSCULAR HGB CONC 34.2 g/dL (32.0-36.0); MEAN CORPUSCULAR VOLUME 89 fl (80-97); PLATELET COUNT 252 10^3/uL (150-450); RED BLOOD COUNT 5.01 10^6/uL (3.72-5.28); SEGMENTED NEUTROPHILS % (AUTO) 80.6 % (42-78); TOTAL CELLS COUNTED % (AUTO) 100 %; WHITE BLOOD COUNT 8.4 10^3/uL (4.0-10.5)
[2019-06-23 10:17] LABS: ALKALINE PHOSPHATASE 76 U/L (38-126); ANION GAP 9 (5-19); ASPARTATE AMINO TRANSFERASE 41 U/L (14-36); BILIRUBIN,TOTAL 0.9 mg/dL (0.2-1.3); BLOOD UREA NITROGEN 10 mg/dL (7-20); CALCIUM 9.5 mg/dL (8.4-10.2); CARBON DIOXIDE 27 mmol/L (22-30); CHLORIDE 104 mmol/L (98-107); GLUCOSE 99 mg/dL (75-110); POTASSIUM 4.3 mmol/L (3.6-5.0); TOTAL PROTEIN 8.3 g/dL (6.3-8.2)
[2019-06-23 10:39] LABS: APPEARANCE,URINE CLEAR; BILIRUBIN,URINE NEGATIVE (NEGATIVE); COLOR,URINE YELLOW; GLUCOSE, URINE NEGATIVE (NEGATIVE); KETONES,URINE NEGATIVE (NEGATIVE); PROTEIN,URINE NEGATIVE (NEGATIVE); URINE SPECIFIC GRAVITY 1.013; UROBILINOGEN,URINE NEGATIVE mg/dL (<2.0)
--- NOTE | 2019-06-23 10:50 | RADIOLOGY REPORT (SQ) ---
EXAM DESCRIPTION: CHEST SINGLE VIEW COMPLETED DATE/TIME: 06/23/2019 10:35 am REASON FOR STUDY: CP COMPARISON: 05/15/2017. EXAM PARAMETERS: NUMBER OF VIEWS: One view. TECHNIQUE: Single frontal radiographic view of the chest acquired. RADIATION DOSE: NA LIMITATIONS: None. FINDINGS: LUNGS AND PLEURA: No opacities, masses or pneumothorax. No pleural effusion. MEDIASTINUM AND HILAR STRUCTURES: No masses. Contour normal. HEART AND VASCULAR STRUCTURES: Heart normal in size. Normal vasculature. BONES: No acute findings. HARDWARE: None in the chest. OTHER: No other significant finding. IMPRESSION: NO ACUTE RADIOGRAPHIC FINDING IN THE CHEST. TECHNICAL DOCUMENTATION: JOB ID: [id number] [address] [employer]- All Rights Reserved Reading location - IP/workstation name: [email or web address]
[2019-06-23] MEDS ORDERED: METOCLOPRAMIDE HCL INJ/PF 10 MG/2 ML SDV IV ONE (14:19)
[2019-06-23 14:52] VITALS: BP 126/67
--- NOTE | 2019-06-23 17:58 | EKG REPORT ---
SEVERITY:- ABNORMAL ECG - SINUS RHYTHM MULTIPLE VENTRICULAR PREMATURE COMPLEXES : Confirmed by: Ankit Stephens MD 23-Jun-2019 17:58:04
== END 2019-06-23 14:52 | disposition home or self-care (01) ==
LOC: ER 09:35
DX: R07.89 Other chest pain (principal); R11.2 Nausea with vomiting, unspecified; Z88.9 Allergy status to unspecified drugs, medicaments and biological substances
CPT/HCPCS: 93005; 99285; 96361; 96374; 96375; 36415; 83735; 84443; 85025; 81025; 80053; 81001; 84484; 71045; 93010; J2765; J2405; J7030